=== PATIENT | female | born 1990 | race Two or more races ===

== ENCOUNTER 2024-03-13 06:02 | Emergency (ER) | payer OTHER ==
[~2024-03-13] VITALS: Ht 154.9 cm; Wt 61.2 kg
[2024-03-13] MEDS ORDERED: TETANUS & DIPHTHERIA TOX,ADULT 0.5 ML VIAL IM STA (06:13)
[2024-03-13] MEDS ORDERED: CLINDAMYCIN PHOSPHATE 150 MG/ML (600mg) IM STA (06:14)
[2024-03-13] MEDS ORDERED: TETANUS DIPHTHERIA TOX. ADSOR 5 ML VIAL IM ONE (06:17)
[2024-03-13] MEDS ORDERED: CLINDAMYCIN PHOSPHATE 150 MG/ML (300mg) ONE (06:17)
== END 2024-03-13 06:56 | disposition home or self-care (01) ==
LOC: ER 06:03
DX: S01.111A Laceration without foreign body of right eyelid and periocular area, initial encounter (principal); W05.2XXA Fall from non-moving motorized mobility scooter, initial encounter; Y93.89 Activity, other specified; Y92.89 Other specified places as the place of occurrence of the external cause; Y99.9 Unspecified external cause status; Z88.0 Allergy status to penicillin